=== PATIENT | female | born 1965 | race Caucasian/White ===

== ENCOUNTER 2024-10-24 10:35 | Emergency (ER) | payer BC, SELFPAY ==
[2024-10-24 11:23] VITALS: BP 102/78; PULSE 73; RESP 16; TEMP 36.4; O2SAT 97
--- NOTE | 2024-10-24 12:10 | ED.DIZZY ---
HPI - Dizziness General Chief Complaint: Dizziness Stated Complaint: Dizzy Time Seen by Provider: 10/24/24 12:11 Source: patient Mode of arrival: ambulatory Limitations: no limitations History of Present Illness HPI Narrative: 59-year-old female presents with complaint of intermittent dizziness. Patient states ?feels like my equilibrium is off ?. Patient reports congestion, clogged feeling and decreased hearing to bilateral ears for 2-3 months. Has been seen in full order twice for same complaint. Was given oral antibiotic and also antibiotic drops. Using Flonase daily. Afebrile. Patient visiting here from [place]. All systems reviewed and negative except as noted above. Related Data Home Medications Medication Instructions Recorded Confirmed albuterol sulfate 90 mcg/actuation inhalation 10/24/24 aerosol inhaler budesonide-formoterol HFA 160 inhalation 10/24/24 mcg-4.5 mcg/actuation aerosol inhaler (Symbicort) hydrocodone 10 mg-acetaminophen tablet 10/24/24 325 mg tablet Allergies Allergy/AdvReac Type Severity Reaction Status Date / Time No Known Allergies Allergy Verified 10/24/24 11:45 Review of Systems Review of Systems: CONSTITUTIONAL: Denies fever, chills, or sweats. EYES: Denies visual changes, redness, or discharge. ENT: Denies rhinorrhea, congestion, sore throat. reports bilateral ear pain, decreased hearing, clogged feeling. CARDIOVASCULAR: Denies chest pain, palpitations, or edema. RESPIRATORY: Denies cough or dyspnea. GASTROINTESTINAL: Denies abdominal pain, nausea, vomiting, or diarrhea. GENITOURINARY: Denies dysuria or hematuria. SKIN: Denies rash or itching. MUSCULOSKELETAL: Denies back pain, joint pain, or myalgia. NEUROLOGIC: Denies headache, numbness, or weakness. Reports dizziness. PSYCHIATRIC: Denies anxiety or depression. All other systems reviewed are negative, except as documented in HPI. PMFSH Comments At time of signature, agree with nursing past medical, surgical, social and family history. There is no relevant family history pertinent to the presenting complaint. Exam Narrative: GENERAL: This is a well-nourished, well-developed patient, in no apparent distress. HEAD: normocephalic, atraumatic. EYES: PERRL. Sclera clear/white. Vision is grossly intact. EARS: External ears normal, auditory canals clear and without drainage, clear fluid with bubbles to bilateral TMs slightly bulging. No erythema. No perforation bilaterally. NOSE: External nose normal with clear nasal drainage, mild congestion, erythema and swelling to bilateral nares THROAT: Mucous membranes moist, clear postnasal drainage without erythema, swelling or exudates. NECK: Neck supple, non-tender without lymphadenopathy, masses or thyromegaly. CARDIOVASCULAR: Regular rate and rhythm without murmurs, gallops, or rubs. RESPIRATORY: Clear to auscultation. Breath sounds equal bilaterally. No wheezes, rales, or rhonchi. SKIN: warm, Dry, intact with no suspicious lesions or rash, good texture and turgor. NEURO: awake, alert, and oriented to person, place and time. There were no obvious focal neurologic abnormalities. EXTREMITIES: No joint tenderness, effusion, or edema noted. Course Course Level of Care: Express Care Visit Vital Signs Vital signs: Vital Signs Temperature 36.4 C 10/24/24 11:23 Pulse Rate 73 10/24/24 11:23 Respiratory Rate 16 10/24/24 11:23 Blood Pressure 102/78 10/24/24 11:23 Pulse Oximetry 97 10/24/24 11:23 Temperature 36.4 C 10/24/24 11:23 Pulse Rate 73 10/24/24 11:23 Respiratory Rate 16 10/24/24 11:23 Blood Pressure 102/78 10/24/24 11:23 Pulse Oximetry 97 10/24/24 11:23 Reviewed MDM - Dizziness MDM Narrative Medical decision making narrative: Patient is well-appearing. No neuro deficits. Has been treated in the past with antibiotics for ear infections, ear fluid. Has not seen an survey research associate. Explain to patient if symptoms not improving after antibiotic and steroids she needs referral to ENT in [place]. Patient is aware of diagnosis, understands and agrees to treatment plan. Anticipatory guidance given. Patient agrees to follow-up as directed and is aware of reasons to seek care at the emergency department. Portions of this record may have been created with voice recognition software Discharge Plan Discharge Clinical Impression: Acute dysfunction of both eustachian tubes, Vertigo, Acute serous otitis media of both ears Patient Disposition: Home, Self-Care Condition: Stable Instructions: Antibiotic Form, Vertigo (ED), Fluid In The Ear (Serous Otitis Media) (ED) Additional Instructions: Take medications as prescribed. Continue using Flonase daily. Drink at least 64 oz of water a day. If symptoms not improving follow-up with an crime specialist. For any worsening of your symptoms go to the ER. Prescriptions: New meclizine 25 mg tablet 25 mg PO Q6-8H PRN (Reason: dizziness) Qty: 30 0RF methylprednisolone [Medrol (Mitul)] 4 mg tablets,dose pack See Rx Instructions PO .COMPLEX Qty: 21 0RF Rx Instructions: orally per package directions loratadine [Claritin] 10 mg tablet 10 mg PO DAILY Qty: 30 0RF amoxicillin-pot clavulanate 875-125 mg tablet 1 tablet PO Q12H 10 Days Qty: 20 0RF No Action hydrocodone-acetaminophen 10-325 mg tablet albuterol sulfate 90 mcg/actuation HFA aerosol inhaler INHALATION budesonide-formoterol [Symbicort] 160-4.5 mcg/actuation HFA aerosol inhaler INHALATION Follow-up/Referrals: PHYSICIAN,FOOD STOREROOM CLERK [Primary Care Provider] - Time of Disposition: 12:19
== END 2024-10-24 12:25 | disposition home or self-care (01) ==
PROVIDERS: Emergency Provider Nurse Practitioner Family
DX: H69.93 Unspecified Eustachian tube disorder, bilateral (principal); R42 Dizziness and giddiness; H65.03 Acute serous otitis media, bilateral; J45.909 Unspecified asthma, uncomplicated
CPT/HCPCS: 99203; G0463